=== PATIENT | male | born 1995 | race Caucasian/White ===

== ENCOUNTER 2017-09-08 22:07 | Emergency (ER) | payer BC ==
[~2017-09-08] VITALS: Ht 190.5 cm; Wt 138.3 kg
--- NOTE | 2017-09-08 23:10 | ER Report ---
History and Physical Time Seen By MD: 23:09 Hx. of Stated Complaint: Right upper tooth pain. HPI/ROS CHIEF COMPLAINT: Right upper tooth pain HISTORY OF PRESENT ILLNESS: Right upper pain and 1st molar. Onset this morning. It is sensitive to cold and pressure. No chip or fracture in that tooth. Posterior molar has had a root canal previously. No fevers. No nausea.. States he is able to see the dentist within a few days. Allergy to penicillin and amoxicillin. REVIEW OF SYSTEMS: Respiratory: No cough, no dyspnea. Cardiovascular: No chest pain, no palpitations. Gastrointestinal: No vomiting, no abdominal pain. Musculoskeletal: No back pain. Allergies: Coded Allergies: No Known Drug Allergies (Unverified , 09/08/17) Hx Substance Use Disorder: No Hx Alcohol Use: No Constitutional Vital Sign - Last 24 Hours 09/08/17 22:12 Temp 98.8 Pulse 67 Resp 20 Pulse Ox 96 O2 Delivery Room Air Physical Exam General Appearance: The patient is alert, has no immediate need for airway protection and no current signs of toxicity. No acute distress Eyes: Pupils equal and round no injection. HEENT: Right upper 1st molar is tender to tapping no signs of abscess in the gums no signs of severe decay or fracture Respiratory: Chest is non tender, lungs are clear to auscultation. Cardiac: regular rate and rhythm [ ] Gastrointestinal: Abdomen is soft and non tender, no masses, bowel sounds normal. Musculoskeletal: Neck: Neck is supple and non tender. Extremities have full range of motion and are non tender. Skin: No rashes or lesions. [ ] DIFFERENTIAL DIAGNOSIS: After history and physical exam differential diagnosis was considered for dental abscess, dental infection, periapical abscess, no signs of jaw abscess or other serious problem. Medical Decision Making ED Course/Re-evaluation ED Course Plan of care agreed-upon agrees to see Dentist a timely fashion Decision to Disposition Date: Sep 08, 2017 Decision to Disposition Time: 23:18 Depart Departure Latest Vital Signs Vital Signs Date Time Temp Pulse Resp B/P (MAP) Pulse Ox O2 Delivery O2 Flow Rate FiO2 09/08/17 22:12 98.8 67 20 96 Room Air Impression: Primary Impression: Dentalgia Condition: Improved Disposition: HOME OR SELF-CARE New Scripts Hydrocodone Bit/Acetaminophen (HYDROCODON-ACETAMINOPHEN 5-325) 1 Each Tablet 1 EACH PO Q4H Y for PAIN, #12 TAB 0 Refills Prov: WAGER,BROOK R MD 09/08/17 Clindamycin Hcl (CLINDAMYCIN HCL) 300 Mg Capsule 300 MG PO Q6H for 10 Days, #40 CAPSULE Prov: JALEESA SOUTH MD 09/08/17 Patient Instructions: Dental Abscess (ED) JALEESA SOUTH MD Sep 08, 2017 23:10
[2017-09-08] MEDS ORDERED: LOR5/325 PO (23:19)
[2017-09-08] MEDS ORDERED: CLIN300C99 PO (23:19)
[2017-09-08] MEDS ORDERED: APAP/HYDROCODONE 325/5 TAB PO ONE (23:20)
[2017-09-08] MEDS ORDERED: oxyCODONE/ACETAMIN 5/325MG TH 2 TAB/BOTTLE ONE (23:27)
== END 2017-09-08 23:40 | disposition home or self-care (01) ==
LOC: ER 22:11
DX: K08.89 Other specified disorders of teeth and supporting structures (principal)
CPT/HCPCS: 99281